=== PATIENT | male | born 1975 | race Caucasian/White ===

== ENCOUNTER 2020-06-28 22:06 | Emergency (ER) | payer OTHER | END 2020-06-28 23:50 | disposition home or self-care (01) | LOC: FER 22:06 | DX: L76.22 Postprocedural hemorrhage of skin and subcutaneous tissue following other procedure (principal); Z88.0 Allergy status to penicillin; Z79.899 Other long term (current) drug therapy; Z98.890 Other specified postprocedural states; Z87.39 Personal history of other diseases of the musculoskeletal system and connective tissue | CPT/HCPCS: 99283 ==

== ENCOUNTER 2021-06-19 17:02 | Emergency (ER) | payer OTHER ==
[2021-06-19 19:10] LABS: BASOPHIL 0.9 % (0-2); EOSINOPHIL 1.6 % (0-5); HCT 43.6 % (42.0-52.0); LYMPHOCYTE 24.8 % (15-48); MCH 30.1 pg (25.0-31.0); MCHC 34.4 g/dL (32.0-36.0); MCV 87.4 fL (78.0-100.0); MONOCYTE 8.8 % (0-12); MPV 9.7 fL (6.0-9.5); NEUTROPHIL 63.5 % (41-80); NRBC 0; PLT 249 K/uL (150-400); RBC 4.99 M/uL (4.70-6.00); RDW 12.3 % (11.5-14.0); WBC 5.7 K/uL (4.0-10.5)
[2021-06-19 19:11] LABS: BILIRUBIN NEGATIVE (NEGATIVE); BLOOD NEGATIVE Ery/uL (NEGATIVE); CLARITY CLEAR (CLEAR); COLOR YELLOW (YELLOW); GLUCOSE (U) NORMAL (NORMAL); LEUKOCYTES NEGATIVE Leu/uL (NEGATIVE); NITRITE NEGATIVE (NEGATIVE); PROTEIN NEGATIVE (NEGATIVE); SPECIFIC GRAVITY <=1.005 (1.001-1.030); UROBILINOGEN 0.2 mg/dL (0.2-1.0)
[2021-06-19 19:36] LABS: ALBUMIN 4.2 g/dL (3.4-5.0); BILIRUBIN - TOTAL 0.5 mg/dL (0.2-1.0); BUN/CREAT RATIO (CALC) 9.8 RATIO; CREATININE 1.12 mg/dL (0.67-1.17); GLOBULIN (CALCULATION) 3.3 g/dL; POTASSIUM 4.1 mmol/L (3.5-5.1); TOTAL PROTEIN 7.5 g/dL (6.4-8.2)
[2021-06-19 19:48] LABS: CORONAVIRUS 2019 SARS-COV-2 NEGATIVE (NEGATIVE); INFLUENZA A NAA NEGATIVE (NEGATIVE)
[2021-06-19] MEDS ORDERED: ONDANSETRON ODT4 MG PO (20:34)
== END 2021-06-19 21:02 | disposition home or self-care (01) ==
LOC: FER 17:02
PROVIDERS: Internal Medicine
DX: R11.2 Nausea with vomiting, unspecified (principal); R19.7 Diarrhea, unspecified; R10.9 Unspecified abdominal pain; F17.210 Nicotine dependence, cigarettes, uncomplicated; Z88.0 Allergy status to penicillin; Z20.822 Contact with and (suspected) exposure to COVID-19
CPT/HCPCS: 36415; 80053; 81003; 83690; 84145; 85025; J7120; U0002